=== PATIENT | female | born 1945 | race Caucasian/White ===

== ENCOUNTER → 2023-11-22 12:29 | Outpatient (REF) | payer MEDICARE, SELFPAY ==
[2023-11-22 14:56] LABS: % Basophils 0.6 % (0-2); % Immature Granulocytes 0.2 % (0-0.5); % Lymphocytes 13.6 % (20.5-51.1); % Neutrophils 73.6 % (42.2-75.2); Absolute Basophils 0.1 10^3/uL (0-0.2); Absolute Eosinophils 0.2 10^3/uL (0-0.7); Absolute Lymphocytes 1.1 10^3/uL (1.2-3.4); Absolute Monocytes 0.7 10^3/uL (0.1-0.6); Hematocrit 38.6 % (37.0-47.0); Hemoglobin 12.9 g/dL (12.0-16.0); Mean Corp Hgb Conc. 33.4 g/dL (33.0-37.0); Mean Corpuscular Hgb 30.9 pg (27.0-31.0); Mean Corpuscular Volume 92.6 fL (81.0-99.0); Mean Platelet Volume 11.1 fL (7.4-10.4); Nucleated Red Blood Cells % 0 %; Platelet Count 211 10^3/uL (130-400); Red Blood Cell Count 4.17 10^6/uL (4.20-5.40); Red Cell Dist. Width 13.1 % (11.5-14.5); White Blood Cell Count 8.1 10^3/uL (4.8-10.8)
[2023-11-22 15:15] LABS: Iron 111 ug/dl (37-170)
[2023-11-22 16:12] LABS: Percent Saturation 38 % (20-50); Total Iron Binding Capacity 290 ug/dl (265-497)
== END ==
LOC: HWLAB 12:29
PROVIDERS: ATTENDING PHYSICIAN Internal Medicine Hematology & Oncology; FAMILY PHYSICIAN Internal Medicine
DX: D50.0 Iron deficiency anemia secondary to blood loss (chronic) (principal)
CPT/HCPCS: 36415; 82728; 83540; 83550; 85025

== ENCOUNTER → 2023-11-30 06:28 | Day surgery (SDC) | payer MEDICARE, SELFPAY ==
[2023-11-30 10:15] LABS: Glucose - Point of Care 218 mg/dl (70-99)
== END ==
LOC: GI 06:28
PROVIDERS: ATTENDING PHYSICIAN Internal Medicine
DX: D50.9 Iron deficiency anemia, unspecified (principal); K57.30 Diverticulosis of large intestine without perforation or abscess without bleeding; K29.70 Gastritis, unspecified, without bleeding; K22.2 Esophageal obstruction; K44.9 Diaphragmatic hernia without obstruction or gangrene; K31.7 Polyp of stomach and duodenum
CPT/HCPCS: 45378; 43239; 88305; 82962; 88342

== ENCOUNTER → 2024-02-21 09:19 | Outpatient (REF) | payer MEDICARE, SELFPAY ==
[2024-02-21 12:40] LABS: % Immature Granulocytes 0.3 % (0-0.5); % Lymphocytes 14.6 % (20.5-51.1); % Monocytes 8.5 % (1.7-9.3); % Neutrophils 72.6 % (42.2-75.2); Absolute Basophils 0.1 10^3/uL (0-0.2); Absolute Eosinophils 0.2 10^3/uL (0-0.7); Absolute Monocytes 0.6 10^3/uL (0.1-0.6); Absolute Neutrophils 5.1 10^3/uL (1.4-6.5); Hematocrit 37.4 % (37.0-47.0); Hemoglobin 12.5 g/dL (12.0-16.0); Mean Corp Hgb Conc. 33.4 g/dL (33.0-37.0); Mean Corpuscular Hgb 30.6 pg (27.0-31.0); Mean Corpuscular Volume 91.4 fL (81.0-99.0); Mean Platelet Volume 11.1 fL (7.4-10.4); Nucleated Red Blood Cells % 0 %; Platelet Count 217 10^3/uL (130-400); Red Blood Cell Count 4.09 10^6/uL (4.20-5.40); White Blood Cell Count 7.1 10^3/uL (4.8-10.8)
[2024-02-21 12:51] LABS: Glycohemoglobin (HgbA1c) 7.7 % (4.0-5.6)
[2024-02-21 12:53] LABS: ALT (SGPT) 18 U/L (0-35); AST (SGOT) 21 U/L (14-36); Alkaline Phosphatase 70 U/L (38-126); Blood Urea Nitrogen 12 mg/dl (7-17); Calcium 9.6 mg/dl (8.4-10.2); Carbon Dioxide 28 mmol/L (22-30); Chloride 104 mmol/L (98-107); Glucose 210 mg/dl (70-99); HDL Cholesterol 71 mg/dl; Iron 96 ug/dl (37-170); LDL Cholesterol, Calculated 57 mg/dl; Potassium 4.4 mmol/L (3.5-5.1); Sodium 138 mmol/L (135-145); Total Bilirubin 0.5 mg/dl (0.2-1.3); Total Cholesterol 153 mg/dl (50-199); Total Protein 6.3 g/dl (6.3-8.2); Triglyceride 126 mg/dl (10-149); Very Low Density Lipoprotein 25 mg/dl (0-30); eGFR > 60.00
[2024-02-21 13:02] LABS: Percent Saturation 33 % (20-50); Total Iron Binding Capacity 283 ug/dl (265-497)
[2024-02-21 13:03] LABS: Free T3 3.05 pg/ml (2.77-5.27); Free T4 1.92 ng/dl (0.78-2.19)
[2024-02-21 13:17] LABS: Microalbumin, Random Urine <0.6 mg/dl (0.6-1.7); TSH 0.51 uIU/ml (0.47-4.68)
== END ==
LOC: HWLAB 09:19
PROVIDERS: ATTENDING PHYSICIAN Internal Medicine Hematology & Oncology; FAMILY PHYSICIAN Internal Medicine
DX: D50.0 Iron deficiency anemia secondary to blood loss (chronic) (principal); E11.9 Type 2 diabetes mellitus without complications; E78.5 Hyperlipidemia, unspecified; E03.9 Hypothyroidism, unspecified
CPT/HCPCS: 36415; 80053; 80061; 82043; 82570; 82728; 83036; 83540; 83550; 84439; 84443; 84481; 85025

== ENCOUNTER → 2024-06-14 14:22 | Outpatient (REF) | payer MEDICARE, SELFPAY | LOC: HWRAD 14:22 | PROVIDERS: ATTENDING PHYSICIAN Nurse Practitioner Family | DX: M25.512 Pain in left shoulder (principal); M79.602 Pain in left arm | CPT/HCPCS: 73030; 73060 ==

== ENCOUNTER 2024-07-28 12:01 | Emergency (ER) | payer MEDICARE, SELFPAY ==
[2024-07-28] VITALS (16 sets, daily range): BP systolic 84–134; BP diastolic 52–90
--- NOTE | 2024-07-28 12:20 | ED.GENMED ---
ED Provider Triage
<Stanley Hooks PA-C - Last Filed: 07/28/24 12:21>
-
Patient seen by provider in Triage?: Seen in Triage
Attestation: A medical screening examination has been initiated by a qualified medical provider. Based on the assessment performed at this time, it has been determined that an emergent medical condition may exist and the patient has been informed
that further medical evaluation and possible additional diagnostic testing may be needed.
HPI: 78-year-old female. Past medical history of atrial fibrillation. Previous cardioversion in the past. Had an ablation 2 years ago and no problems since. Does take Xarelto and reports good compliance with this. Currently feeling palpitations
and mild shortness of breath.
GENERAL: Alert , in no apparent distress
EYE: No visual abnormalities.
NECK: Trachea midline
ENT: No visible abnormalities.
LUNGS: No acute respiratory distress
NEUROLOGICAL: Alert and oriented
SKIN: Skin intact. No visible changes.
MUSCULOSKELETAL: Moving extremities normally
PSYCH: Normal and appropriate interaction.
This is a medical evaluation conducted in person to initiate diagnostic evaluation and provide initial therapeutics. Please see further documentation by the treating clinician.
EKG confirms A-fib with RVR. Labs ordered. Patient is otherwise hemodynamically stable.
History of Present Illness
<Stanley Hooks PA-C - Last Filed: 07/28/24 12:21>
General
Chief Complaint: Heart Rate Problem
Time Seen by Provider: 07/28/24 13:29
<Jaylen Obregon DO - Last Filed: 07/28/24 16:17>
General
Source: patient and records
Exam Limitations: none
Nursing documentation reviewed up to this point in time: agreed with
History of Present Illness
History of Present Illness:
78-year-old female PAF status post ablation she has been compliant with her Xarelto, her sotalol 40 mg twice a day, no fever chills no chest pain around 5 AM this morning developed some palpitations mild shortness of breath,
Past History
<Stanley Hooks PA-C - Last Filed: 07/28/24 12:21>
Past History
ED Past Medical History: Arrthythmia, HTN, NIDDM, Hypothyroidism and Other (Diverticulitis, peptic ulcer disease)
ED Past Surgical History: Gynecological (Tubal ligation) and Other (Acoustic neuroma surgery)
Social History
Tobacco: Non-smoker
Alcohol: None
Drug: None
Personal:
Living: with family
<Jaylen Obregon DO - Last Filed: 07/28/24 16:17>
Past History
ED Past Surgical History: Cardiac
Social History
Employment: Retired
Review of Systems
<DO Georgina Wilson Last Filed: 07/28/24 16:17>
Review of Systems
All Other Systems: Not applicable
Constitutional: Denies fever or fatigue
Respiratory: Reports trouble breathing
Cardiac: Reports palpitations; Denies chest pain or diaphoresis
ABD/GI: Reports no symptoms
: Reports no symptoms
Musculoskeletal: Reports no symptoms
Hematologic/Lymphatic: Reports no symptoms
Psychiatric: Reports no symptoms
Phy Exam
<DO Georgina Wilson Last Filed: 07/28/24 16:17>
Physical Exam
Physical Exam:
Physical Exam
General: no apparent distress, not acutely ill
Neck: supple.
Heart: Tachycardic
Lungs: no acute respiratory distress. clear bilaterally
Abdomen: Nontender
Neuro: alert and oriented. no focal neurological deficits
Skin: no rash
Psychiatric: well kept. interactive and cooperative
Extremities: no edema.
Course
<Stanley Hooks PA-C - Last Filed: 07/28/24 12:21>
Orders/Labs/Results
Orders:
Orders
07/28/24 12:02
Electrocardiogram (*1) Urgent
Reason for Study: Chest Pain
EKG- Treatment ONCE
07/28/24 12:25
BMP [Basic Metabolic Panel] Urgent
CBC/With Diff [Complete Blood Count/With Diff] Urgent
Magnesium Urgent
Comment: ADD ON
TSH Urgent
07/28/24 13:23
Add On- LAB Urgent
Tests Added?: magnesium
07/28/24 13:40
CR Chest Portable - 1 View Urgent
Comment:
Reason For Exam: sob
Reason Study Needs to be Portable: Patient Unstable
07/28/24 13:56
Magnesium Sulfate 1 grams 0.9% Sodium Chloride 100 ml [Nss] 100 ml IV NOW
07/28/24 15:22
Propofol [Diprivan] 100 mg IV NOW STA
07/28/24 15:23
ASA Classification Routine
Abnormal Lab Results
07/28/24
12:25
MPV 10.9 H fL
(7.4-10.4)
Absolute Neuts (auto) 7.7 H 10^3/uL
(1.4-6.5)
Absolute Lymphs (auto) 1.1 L 10^3/uL
(1.2-3.4)
Absolute Monos (auto) 0.7 H 10^3/uL
(0.1-0.6)
Neutrophils % 79.5 H %
(42.2-75.2)
Lymphocytes % 11.0 L %
(20.5-51.1)
Glucose 336 H mg/dl
(70-99)
Magnesium 1.4 L mg/dl
(1.6-2.3)
07/28/24 12:25
07/28/24 12:25
Vital Signs
Initial and Last Documented VS:
Initial Vital Signs
Temp Pulse Resp BP Pulse Ox
97.6 F 141 16 123/77 99
07/28/24 12:13 07/28/24 12:13 07/28/24 12:13 07/28/24 12:13 07/28/24 12:13
Last Documented Vital Signs
Temp Pulse Resp BP Pulse Ox
98.2 F 142 17 124/82 100
07/28/24 15:53 07/28/24 15:53 07/28/24 15:53 07/28/24 15:53 07/28/24 15:53
<Jaylen Obregon, DO - Last Filed: 07/28/24 16:17>
Orders/Labs/Results
Orders:
Orders
07/28/24 12:02
Electrocardiogram (*1) Urgent
Reason for Study: Chest Pain
EKG- Treatment ONCE
07/28/24 12:25
BMP [Basic Metabolic Panel] Urgent
CBC/With Diff [Complete Blood Count/With Diff] Urgent
Magnesium Urgent
Comment: ADD ON
TSH Urgent
07/28/24 13:23
Add On- LAB Urgent
Tests Added?: magnesium
07/28/24 13:40
CR Chest Portable - 1 View Urgent
Comment:
Reason For Exam: sob
Reason Study Needs to be Portable: Patient Unstable
07/28/24 13:56
Magnesium Sulfate 1 grams 0.9% Sodium Chloride 100 ml [Nss] 100 ml IV NOW
07/28/24 15:22
Propofol [Diprivan] 100 mg IV NOW STA
07/28/24 15:23
ASA Classification Routine
Abnormal Lab Results
07/28/24
12:25
MPV 10.9 H fL
(7.4-10.4)
Absolute Neuts (auto) 7.7 H 10^3/uL
(1.4-6.5)
Absolute Lymphs (auto) 1.1 L 10^3/uL
(1.2-3.4)
Absolute Monos (auto) 0.7 H 10^3/uL
(0.1-0.6)
Neutrophils % 79.5 H %
(42.2-75.2)
Lymphocytes % 11.0 L %
(20.5-51.1)
Glucose 336 H mg/dl
(70-99)
Magnesium 1.4 L mg/dl
(1.6-2.3)
07/28/24 12:25
07/28/24 12:25
Vital Signs
Initial and Last Documented VS:
Initial Vital Signs
Temp Pulse Resp BP Pulse Ox
97.6 F 141 16 123/77 99
07/28/24 12:13 07/28/24 12:13 07/28/24 12:13 07/28/24 12:13 07/28/24 12:13
Last Documented Vital Signs
Temp Pulse Resp BP Pulse Ox
98.2 F 142 17 124/82 100
07/28/24 15:53 07/28/24 15:53 07/28/24 15:53 07/28/24 15:53 07/28/24 15:53
Procedures
Carolynlt;Jaylen Obregon, DO - Last Filed: 07/28/24 16:17>
Moderate Sedation
ASA Risk Score: Class II
Chart and allergies reviewed: Yes
Consent for anesthesia obtained: Yes
Time out completed (validating right patient & procedure): Yes
Moderate Sedation Start Time(when first medication is given): 15:58
History of difficult intubation: No
Airway free of obstruction: Yes
Patient has a gag reflex: Yes
Patient is able to open mouth: Yes
Patient has no dentures: Yes
Patient has no loose teeth: Yes
Medication administered by Provider during Moderate Sedation: IV Propofol (mg)
Total dose administered: 50
Time drug administered: 15:58
Moderate Sedation Procedure End Time: 16:08
Cardioversion
Indication:: Afib
Performed by:: chelsy
Synchronized?: Yes
Energy Used: 150 joules
Number of attempts: 1
Successful?: Yes
ASA Risk Score: Class II
Any reaction or bad outcome to prior sedation/anesthesia?: No history of a reaction
Sedation level to be attained: moderate
Chart and allergies reviewed: Yes
Patient reassessed prior to sedation: No
Time out completed at (validating right patient & procedure): 15:58
History of difficult intubation: No
Airway free of obstruction: Yes
Patient has a gag reflex: Yes
Patient is able to open mouth: Yes
Patient has no dentures: Yes
Patient has no loose teeth: Yes
Medication administered by Provider during Moderate Sedation: IV Propofol (mg)
Total dose administered: 50
Time drug administered: 13:58
Start Time: 13:58
Stop Time: 16:08
<Jaylen Obregon, DO - Last Filed: 07/28/24 16:17>
MDM/Problems Addressed
Differential Diagnosis Includes:
A-fib SVT sinus tach
MDM/Problems Addressed:
Rapid A-fib
Chronic conditions affecting care: Arrhythmia
Acute Exacerbation and/or Progression of Chronic Illness: Arrhythmia
<Jaylen Obregon, DO - Last Filed: 07/28/24 16:17>
*Radiology
Radiology exam reviewed: preliminary read by ED provider
*Pulse Oximetry
Patient hypoxic: no
*EKG
Interpreted by ED Provider?: Yes
Interpretation: abnormal
Comparison EKG: no comparison EKG present
Heart Rate: 140
Rate: tachycardiac
Rhythm: a-fib
Ischemia: non-specific ST changes
*[employer] Interpretation
Rate: tachycardiac
Interpretation: abnormal
Heart Rate: 130
*Critical Care Note
Total Time (30-74mins, 75-104mins- exclusive of procedures): 30
Data Reviewed
Review of Other/Old Records Reveals: Labs and Discharge Summary
Source: patient and records
<Jaylen Obregon DO - Last Filed: 07/28/24 16:17>
Update Note
Update Note:
Update labs noted, will replete her potassium, briefly reviewed with cardiology
Will confirm that she has been compliant with her Xarelto if she does not convert after magnesium infusion will suggest DC cardioversion
4 PM patient successfully cardioverted verbal written consent 1 synchronized 150 J shock
ED Attending Note
<Stanley Hooks PA-C - Last Filed: 07/28/24 12:21>
-
Portions of this chart may have been created with voice recognition software.� Occasional wrong word or��sound alike� substitutions may have occurred due to the inherent limitations of voice recognition software.
Discharge Plan
Departure
Patient Disposition: Home (Routine Discharge)
Date of Disposition: 07/28/24
Time of Disposition: 16:07
Patient with high blood pressure during this ER visit?: No
Condition: Good
Discharge Problem:
Hypomagnesemia, Type 2 diabetes mellitus without complications, A-fib
Instructions: Atrial Fibrillation (DC), MODERATE SEDATION ADULT
Prescriptions:
New
magnesium 250 mg tablet
250 mg PO DAILY Qty: 30 0RF
No Action
latanoprost 1 DROP drops
1 drp BOTH EYES HS
metformin 500 MG tablet
500 mg PO BID
cyanocobalamin (vitamin B-12) 1,000 MCG tablet
1,000 mcg PO DAILY
glimepiride 1 MG tablet
1 mg PO QPM
ascorbic acid (vitamin C) [Vitamin C] 500 MG tablet
1,000 mg PO DAILY
simvastatin 20 MG tablet
20 mg PO QPM
pyridoxine (vitamin B6) 50 MG tablet
100 mg PO DAILY
cholecalciferol (vitamin D3) 2,000 UNITS tablet
2,000 unit PO DAILY
omeprazole magnesium [Prilosec OTC] 20 MG tablet,delayed release (DR/EC)
20 mg PO HS
Xarelto 20 MG tablet
20 mg PO QPM
Patient Comments:
07/28/22--generic only, mailed to her house from [place]
levothyroxine 100 MCG tablet
100 mcg PO DAILY
Patient Comments:
07/28/22-- brand name only, mailed to her house from [place]
glimepiride 4 mg tablet
4 mg PO DAILY
tizanidine 2 mg Capsule
2 mg PO Q8H PRN (Reason: pain)
PreserVision AREDS 2,148 mcg-113 mg-45 mg-17.4mg Tablet
1 tab PO BID
sotalol 80 MG tablet
40 mg PO BID
Referrals:
Debbie Newman MD [Family Provider] -
Interventions
Interventions:
*Risk Screen - Suicide Last Done: 07/28/24 12:13
*General Assessment Last Done: 07/28/24 12:13
*Neglect/Abuse Screening Last Done: 07/28/24 12:13
ED- Fall Risk Assessment Last Done: 07/28/24 13:26
ED- Cardiac Assessment Last Done: 07/28/24 13:26
ED- Pulmonary Assessment Last Done: 07/28/24 13:26
Discharge Date and Time
Print Language: ARMENIAN
[2024-07-28 12:52] LABS: % Basophils 0.6 % (0-2); % Eosinophils 1.3 % (0-6); % Immature Granulocytes 0.3 % (0-0.5); % Monocytes 7.3 % (1.7-9.3); % Neutrophils 79.5 % (42.2-75.2); Absolute Basophils 0.1 10^3/uL (0-0.2); Absolute Eosinophils 0.1 10^3/uL (0-0.7); Absolute Lymphocytes 1.1 10^3/uL (1.2-3.4); Absolute Monocytes 0.7 10^3/uL (0.1-0.6); Absolute Neutrophils 7.7 10^3/uL (1.4-6.5); Hematocrit 39.3 % (37.0-47.0); Hemoglobin 13.1 g/dL (12.0-16.0); Mean Corp Hgb Conc. 33.3 g/dL (33.0-37.0); Mean Corpuscular Hgb 29.5 pg (27.0-31.0); Mean Corpuscular Volume 88.5 fL (81.0-99.0); Mean Platelet Volume 10.9 fL (7.4-10.4); Nucleated Red Blood Cells % 0 %; Platelet Count 246 10^3/uL (130-400); Red Blood Cell Count 4.44 10^6/uL (4.20-5.40); Red Cell Dist. Width 13.3 % (11.5-14.5); White Blood Cell Count 9.7 10^3/uL (4.8-10.8)
[2024-07-28 13:10] LABS: Blood Urea Nitrogen 17 mg/dl (7-17); Calcium 9.6 mg/dl (8.4-10.2); Carbon Dioxide 27 mmol/L (22-30); Chloride 101 mmol/L (98-107); Glucose 336 mg/dl (70-99); Potassium 4.3 mmol/L (3.5-5.1); Sodium 138 mmol/L (135-145); eGFR > 60.00
[2024-07-28 13:38] LABS: TSH 1.35 uIU/ml (0.47-4.68)
[2024-07-28 13:45] LABS: Magnesium 1.4 mg/dl (1.6-2.3)
[2024-07-28] MEDS: MAGNESIUM SULFATE 102 GRAMS IV (14:21)
== END 2024-07-28 17:44 | disposition home or self-care (01) ==
LOC: EMR 12:01
PROVIDERS: Emergency Medicine; EMERGENCY PHYSICIAN Emergency Medicine; FAMILY PHYSICIAN Internal Medicine
DX: E83.42 Hypomagnesemia (principal); E11.9 Type 2 diabetes mellitus without complications; I48.91 Unspecified atrial fibrillation; E03.9 Hypothyroidism, unspecified; I10 Essential (primary) hypertension; Z79.01 Long term (current) use of anticoagulants; Z87.11 Personal history of peptic ulcer disease; Z98.51 Tubal ligation status
CPT/HCPCS: 99284; 92960; 96365; 71045; 80048; 83735; 84443; 85025; 93005

== ENCOUNTER → 2024-08-02 12:44 | Outpatient (REF) | payer MEDICARE, SELFPAY | LOC: HWRCS 12:44 | PROVIDERS: ATTENDING PHYSICIAN Internal Medicine Cardiovascular Disease; FAMILY PHYSICIAN Internal Medicine | DX: I48.0 Paroxysmal atrial fibrillation (principal); I10 Essential (primary) hypertension | CPT/HCPCS: 93306 ==

== ENCOUNTER 2024-08-18 19:25 | Emergency (ER) | payer MEDICARE, SELFPAY ==
[2024-08-18 19:34] VITALS: BP 103/81
[2024-08-18 19:35] VITALS: BP 103/81
[2024-08-18 20:00] VITALS: BP 100/60
[2024-08-18] MEDS: TYLENOL 650 MG PO (20:58)
--- NOTE | 2024-08-18 21:51 | ED.MUSCINJ ---
HPI-Injury
General
Chief Complaint: Fall
Source: patient
Exam Limitations: none
Time Seen by Provider: 08/18/24 20:28
Nursing documentation reviewed up to this point in time: agreed with
History of Present Illness-Injury
Initial Injury comments:
78 yo female from home here for fall when she stumbled getting up from her chair on her deck earlier this evening. She states her legs are always weak and she twisted the right knee as she fell. She denies hitting her head or any other injury. She
arrives via EMS.
History of balance problems, A-fib on Xarelto, diverticulitis, GERD, NIDDM, hypothyroid
Past History
Past History
ED Past Medical History: Arrthythmia, HTN, NIDDM, Hypothyroidism and Other (Diverticulitis, peptic ulcer disease)
ED Past Surgical History: Cardiac, Gynecological (Tubal ligation) and Other (Acoustic neuroma surgery)
Social History
Tobacco: Non-smoker
Alcohol: None
Drug: None
Personal:
Living: with family
Employment: Retired
Review of Systems
Review of Systems
Allergies reviewed?: Yes
All Other Systems: ROS reviewed and negative except as documented in HPI and ROS
Respiratory: Denies trouble breathing
Cardiac: Denies chest pain
ABD/GI: Denies abdominal pain
Musculoskeletal: Reports other (right knee pain); Denies edema
Skin: Reports no symptoms
Neurological: Denies dizzy, weakness or numbness
Phy Exam
Physical Exam
Physical Exam:
GENERAL: No acute distress. A&Ox3.
CONSTITUTIONAL: Afebrile.
EYES: PERRL, conjunctivae normal
ENMT: moist mucus membranes, Pharynx nl
RESPIRATORY: Regular respirations, nonlabored, lungs clear.
CARDIOVASCULAR: Regular rate and rhythm, no murmurs, no rubs.
GI: Soft, nontender
MUSCULOSKELETAL: Right knee tender to palpate medially. The rest of the knee is nontender. She is able to straighten the knee, she is able to flex the knee to 45 degrees fairly comfortably. There is no significant swelling. Distal neurovascular
intact. Moves with ease. Well perfused.
SKIN: Warm, dry, pink
PSYCH: Normal mood and affect. Well kept, interactive and appropriate
NEUROLOGIC: Awake, alert and oriented. No focal neurological deficits
Injury Course
Orders/Labs/Results
Orders:
Orders
08/18/24 19:57
CR Knee- Right 4 Or More View* Urgent
Comment:
Reason For Exam: knee pain
08/18/24 20:56
Acetaminophen [Tylenol] 650 mg .ROUTE .STK-MED ONE
08/18/24 20:58
Acetaminophen [Tylenol] 650 mg PO NOW STA
MDM/Problems Addressed
Differential Diagnosis Includes:
Knee sprain, fracture, torn meniscus
MDM/Problems Addressed:
78 yo female from home here for fall when she stumbled getting up from her chair on her deck earlier this evening. She states her legs are always weak and she twisted the right knee as she fell. She denies hitting her head or any other injury. She
arrives by EMS.
History of balance problems, A-fib on Xarelto, diverticulitis, GERD, NIDDM, hypothyroid
X-ray of right knee shows no acute abnormality, mild degenerative changes.
9:20 p.m.
Rojas wrap applied. Pt OOB and ambulating very steadily and comfortably with walker
Provided walker to go home.
She states she will follow up with Dr. Johnson
*Critical Care Note
Total Time (30-74mins, 75-104mins- exclusive of procedures): Not Applicable
ED Attending Note
-
Portions of this chart may have been created with voice recognition software.� Occasional wrong word or��sound alike� substitutions may have occurred due to the inherent limitations of voice recognition software.
Discharge Plan
Departure
Patient Disposition: Home (Routine Discharge)
Date of Disposition: 08/18/24
Time of Disposition: 21:49
Patient with high blood pressure during this ER visit?: No
Condition: Good
Discharge Problem:
Soft tissue injury of right knee, Fall from slip, trip, or stumble
Instructions: Preventing falls in adults, Knee Sprain ED
Prescriptions:
No Action
latanoprost 1 DROP drops
1 drp BOTH EYES HS
metformin 500 MG tablet
500 mg PO BID
cyanocobalamin (vitamin B-12) 1,000 MCG tablet
1,000 mcg PO DAILY
glimepiride 1 MG tablet
1 mg PO QPM
ascorbic acid (vitamin C) [Vitamin C] 500 MG tablet
1,000 mg PO DAILY
simvastatin 20 MG tablet
20 mg PO QPM
pyridoxine (vitamin B6) 50 MG tablet
100 mg PO DAILY
cholecalciferol (vitamin D3) 2,000 UNITS tablet
2,000 unit PO DAILY
omeprazole magnesium [Prilosec OTC] 20 MG tablet,delayed release (DR/EC)
20 mg PO HS
Xarelto 20 MG tablet
20 mg PO QPM
Patient Comments:
07/28/22--generic only, mailed to her house from [facility]
levothyroxine 100 MCG tablet
100 mcg PO DAILY
Patient Comments:
07/28/22-- brand name only, mailed to her house from [facility]
glimepiride 4 mg tablet
4 mg PO DAILY
tizanidine 2 mg Capsule
2 mg PO Q8H PRN (Reason: pain)
PreserVision AREDS 2,148 mcg-113 mg-45 mg-17.4mg Tablet
1 tab PO BID
sotalol 80 MG tablet
40 mg PO BID
magnesium 250 mg tablet
250 mg PO DAILY Qty: 30 0RF
Referrals:
Jaylen Johnson MD [Active] - Call in 1-3 days for appt
Debbie Newman MD [Family Provider] -
Activity Restrictions/Additional Instructions:
As we discussed, wear the Rojas wrap as needed for swelling, comfort and support.
Use your walker at all times when up and around until the knee feels much better and is more stable
Call the orthopedic doctors office on Wednesday and make it next available appointment for reevaluation of the knee.
Tylenol as needed for pain
If your knee is not much improved within the next week you may need further imaging to see if you tore something in the knee joint
Interventions
Interventions:
*Risk Screen - Suicide Last Done: 08/18/24 19:34
*General Assessment Last Done: 08/18/24 19:34
*Neglect/Abuse Screening Last Done: 08/18/24 19:34
*Nursing Disposition Last Done: 08/18/24 22:02
ED-Musculoskeletal Assessment Last Done: 08/18/24 19:56
ED- Neurological Assessment Last Done: 08/18/24 19:56
ED-Skin Assessment Last Done: 08/18/24 19:56
Discharge Date and Time
Discharge Date/Time: 08/18/24 22:04
Print Language: CHINESE
== END 2024-08-18 22:04 | disposition home or self-care (01) ==
LOC: EMR 19:25
PROVIDERS: EMERGENCY PHYSICIAN Emergency Medicine; FAMILY PHYSICIAN Internal Medicine
DX: S89.81XA Other specified injuries of right lower leg, initial encounter (principal); W01.0XXA Fall on same level from slipping, tripping and stumbling without subsequent striking against object, initial encounter; I10 Essential (primary) hypertension; E11.9 Type 2 diabetes mellitus without complications; E03.9 Hypothyroidism, unspecified; I48.91 Unspecified atrial fibrillation; Z79.01 Long term (current) use of anticoagulants
CPT/HCPCS: 99283; 73564

== ENCOUNTER → 2024-09-06 10:07 | Outpatient (REF) | payer MEDICARE, SELFPAY ==
[2024-09-06 12:10] LABS: % Basophils 0.7 % (0-2); % Immature Granulocytes 0.3 % (0-0.5); % Lymphocytes 13.4 % (20.5-51.1); % Monocytes 7.6 % (1.7-9.3); Absolute Basophils 0.1 10^3/uL (0-0.2); Absolute Eosinophils 0.1 10^3/uL (0-0.7); Absolute Monocytes 0.5 10^3/uL (0.1-0.6); Absolute Neutrophils 5.4 10^3/uL (1.4-6.5); Hematocrit 37.4 % (37.0-47.0); Hemoglobin 12.1 g/dL (12.0-16.0); Mean Corp Hgb Conc. 32.4 g/dL (33.0-37.0); Mean Corpuscular Hgb 29.6 pg (27.0-31.0); Mean Corpuscular Volume 91.4 fL (81.0-99.0); Mean Platelet Volume 10.7 fL (7.4-10.4); Nucleated Red Blood Cells % 0 %; Platelet Count 212 10^3/uL (130-400); Red Blood Cell Count 4.09 10^6/uL (4.20-5.40); Red Cell Dist. Width 13.5 % (11.5-14.5); White Blood Cell Count 7.1 10^3/uL (4.8-10.8)
[2024-09-06 13:51] LABS: ALT (SGPT) 20 U/L (0-35); AST (SGOT) 20 U/L (14-36); Albumin 4.3 g/dl (3.5-5.0); Alkaline Phosphatase 59 U/L (38-126); Blood Urea Nitrogen 16 mg/dl (7-17); Calcium 9.2 mg/dl (8.4-10.2); Carbon Dioxide 26 mmol/L (22-30); Chloride 102 mmol/L (98-107); Glucose 211 mg/dl (70-99); HDL Cholesterol 74 mg/dl; Iron 86 ug/dl (37-170); LDL Cholesterol, Calculated 55 mg/dl; Potassium 4.3 mmol/L (3.5-5.1); Sodium 141 mmol/L (135-145); Total Bilirubin 0.5 mg/dl (0.2-1.3); Total Cholesterol 149 mg/dl (50-199); Total Protein 6.4 g/dl (6.3-8.2); Triglyceride 101 mg/dl (10-149); Very Low Density Lipoprotein 20 mg/dl (0-30); eGFR > 60.00
[2024-09-06 13:59] LABS: Percent Saturation 28 % (20-50); Total Iron Binding Capacity 305 ug/dl (265-497)
[2024-09-06 14:23] LABS: Ferritin 95.6 ng/ml (11.1-264.0)
[2024-09-06 16:35] LABS: Glycohemoglobin (HgbA1c) 7.8 % (4.0-5.6)
== END ==
LOC: HWLAB 10:07
PROVIDERS: ATTENDING PHYSICIAN Nurse Practitioner Adult Health; FAMILY PHYSICIAN Internal Medicine
DX: E11.9 Type 2 diabetes mellitus without complications (principal); E78.5 Hyperlipidemia, unspecified; D50.0 Iron deficiency anemia secondary to blood loss (chronic)
CPT/HCPCS: 36415; 80053; 80061; 82728; 83036; 83540; 83550; 85025

== ENCOUNTER → 2025-01-29 09:19 | Outpatient (REF) | payer MEDICARE, SELFPAY ==
[2025-01-29 11:47] LABS: % Basophils 0.8 % (0-2); % Immature Granulocytes 0.3 % (0-0.5); % Monocytes 7.5 % (1.7-9.3); % Neutrophils 75.4 % (42.2-75.2); Absolute Basophils 0.1 10^3/uL (0-0.2); Absolute Eosinophils 0.1 10^3/uL (0-0.7); Absolute Monocytes 0.5 10^3/uL (0.1-0.6); Absolute Neutrophils 5.4 10^3/uL (1.4-6.5); Hematocrit 36.8 % (37.0-47.0); Hemoglobin 12.2 g/dL (12.0-16.0); Mean Corp Hgb Conc. 33.2 g/dL (33.0-37.0); Mean Corpuscular Hgb 30.3 pg (27.0-31.0); Mean Corpuscular Volume 91.5 fL (81.0-99.0); Mean Platelet Volume 11.2 fL (7.4-10.4); Nucleated Red Blood Cells % 0 %; Platelet Count 196 10^3/uL (130-400); Red Blood Cell Count 4.02 10^6/uL (4.20-5.40); Red Cell Dist. Width 12.9 % (11.5-14.5); White Blood Cell Count 7.2 10^3/uL (4.8-10.8)
[2025-01-29 12:03] LABS: Glycohemoglobin (HgbA1c) 7.7 % (4.0-5.6)
[2025-01-29 13:30] LABS: Microalbumin, Random Urine < 0.6 mg/dl (0.6-1.7)
[2025-01-29 14:09] LABS: Free T3 3.04 pg/ml (2.77-5.27); Free T4 1.66 ng/dl (0.78-2.19)
[2025-01-29 14:23] LABS: TSH 0.33 uIU/ml (0.47-4.68)
[2025-01-29 14:27] LABS: Ferritin 72.3 ng/ml (11.1-264.0)
[2025-01-29 14:43] LABS: ALT (SGPT) 23 U/L (0-35); AST (SGOT) 22 U/L (14-36); Albumin 4.4 g/dl (3.5-5.0); Alkaline Phosphatase 73 U/L (38-126); Blood Urea Nitrogen 16 mg/dl (7-17); Calcium 9.5 mg/dl (8.4-10.2); Carbon Dioxide 27 mmol/L (22-30); Chloride 104 mmol/L (98-107); Glucose 240 mg/dl (70-99); HDL Cholesterol 63 mg/dl; Iron 102 ug/dl (37-170); LDL Cholesterol, Calculated 67 mg/dl; Potassium 4.5 mmol/L (3.5-5.1); Sodium 142 mmol/L (135-145); Total Bilirubin 0.7 mg/dl (0.2-1.3); Total Cholesterol 154 mg/dl (50-199); Total Protein 6.5 g/dl (6.3-8.2); Triglyceride 122 mg/dl (10-149); Very Low Density Lipoprotein 24 mg/dl (0-30); eGFR > 60.00
[2025-01-29 14:51] LABS: Percent Saturation 32 % (20-50); Total Iron Binding Capacity 316 ug/dl (265-497)
== END ==
LOC: HWLAB 09:19
PROVIDERS: ATTENDING PHYSICIAN Internal Medicine Hematology & Oncology; FAMILY PHYSICIAN Internal Medicine
DX: D50.0 Iron deficiency anemia secondary to blood loss (chronic) (principal); E11.9 Type 2 diabetes mellitus without complications; E78.5 Hyperlipidemia, unspecified
CPT/HCPCS: 36415; 80053; 80061; 82043; 82570; 82728; 83036; 83540; 83550; 84439; 84443; 84481; 85025

== ENCOUNTER → 2025-04-23 08:52 | Outpatient (REF) | payer MEDICARE, SELFPAY ==
[2025-04-23 12:11] LABS: Hematocrit 35.4 % (37.0-47.0); Hemoglobin 11.6 g/dL (12.0-16.0); Mean Corp Hgb Conc. 32.8 g/dL (33.0-37.0); Mean Corpuscular Volume 89.8 fL (81.0-99.0); Nucleated Red Blood Cells % 0 %; Platelet Count 196 10^3/uL (130-400); Red Cell Dist. Width 13.2 % (11.5-14.5)
[2025-04-23 14:06] LABS: Iron 65 ug/dl (37-170)
[2025-04-23 14:15] LABS: Total Iron Binding Capacity 307 ug/dl (265-497)
[2025-04-23 14:36] LABS: Ferritin 41.8 ng/ml (11.1-264.0)
== END ==
LOC: HWLAB 08:52
PROVIDERS: ATTENDING PHYSICIAN Internal Medicine Hematology & Oncology; FAMILY PHYSICIAN Internal Medicine
DX: D50.0 Iron deficiency anemia secondary to blood loss (chronic) (principal)
CPT/HCPCS: 36415; 82728; 83540; 83550; 85025

== ENCOUNTER → 2025-06-04 09:48 | Outpatient (REF) | payer MEDICARE, SELFPAY ==
[2025-06-04 11:33] LABS: Hematocrit 36.5 % (37.0-47.0); Hemoglobin 11.8 g/dL (12.0-16.0); Mean Corp Hgb Conc. 32.3 g/dL (33.0-37.0); Mean Corpuscular Volume 89.7 fL (81.0-99.0); Nucleated Red Blood Cells % 0 %; Platelet Count 208 10^3/uL (130-400); Red Cell Dist. Width 13.6 % (11.5-14.5)
[2025-06-04 11:46] LABS: Iron 82 ug/dl (37-170)
[2025-06-04 11:56] LABS: Total Iron Binding Capacity 320 ug/dl (265-497)
[2025-06-04 12:22] LABS: Ferritin 54.4 ng/ml (11.1-264.0)
== END ==
LOC: HWLAB 09:48
PROVIDERS: ATTENDING PHYSICIAN Internal Medicine Hematology & Oncology; FAMILY PHYSICIAN Internal Medicine
DX: D50.0 Iron deficiency anemia secondary to blood loss (chronic) (principal)
CPT/HCPCS: 36415; 82728; 83540; 83550; 85025

== ENCOUNTER 2025-07-25 10:13 | Day surgery (SDC) | payer MEDICARE, SELFPAY | END 2025-07-25 12:34 | disposition home or self-care (01) | LOC: CATH 10:13 | PROVIDERS: ATTENDING PHYSICIAN Internal Medicine; FAMILY PHYSICIAN Internal Medicine; OTHER PHYSICIAN Internal Medicine Cardiovascular Disease | DX: I48.0 Paroxysmal atrial fibrillation (principal); I10 Essential (primary) hypertension; Z79.01 Long term (current) use of anticoagulants | CPT/HCPCS: 92960; 93005 ==

== ENCOUNTER → 2025-08-07 11:04 | Outpatient (REF) | payer MEDICARE, SELFPAY | LOC: HWRCS 11:04 | PROVIDERS: ATTENDING PHYSICIAN Internal Medicine Cardiovascular Disease; FAMILY PHYSICIAN Internal Medicine | DX: I48.0 Paroxysmal atrial fibrillation (principal) | CPT/HCPCS: 93306 ==